=== PATIENT | female | born 1990 | race Caucasian/White ===

== ENCOUNTER 2018-08-07 18:35 | Emergency (ER) | payer OTHER ==
[~2018-08-07] VITALS: Ht 170.2 cm; Wt 81.2 kg
[2018-08-07 18:41] VITALS: Ht 170.2 cm; Wt 81.2 kg
[2018-08-07 19:46] LABS: BASOPHIL % 1.7 % (0-2); PLATELET COUNT 388 x10^3mcL (130-400); RED CELL DISTRIBUTION WIDTH 13.6 % (11.5-14.5)
[2018-08-07 21:47] VITALS: BP 122/69
== END 2018-08-07 21:47 | disposition home or self-care (01) ==
LOC: ED 18:35
DX: O20.8 Other hemorrhage in early pregnancy (principal); Z3A.00 Weeks of gestation of pregnancy not specified
CPT/HCPCS: 36415

== ENCOUNTER 2020-04-19 20:02 | Emergency (ER) | payer OTHER ==
[~2020-04-19] VITALS: Ht 170.2 cm; Wt 74.4 kg
[2020-04-19 20:09] VITALS: Ht 170.2 cm; Wt 74.4 kg
[2020-04-19 21:04] LABS: PLATELET COUNT 505 x10^3mcL (179-408)
[2020-04-19 21:21] LABS: ALBUMIN 3.4 g/dL (3.4-5.0); ALKALINE PHOSPHATASE 126 U/L (46-116); ALT/SGPT 36 U/L (14-59); AST/SGOT 32 U/L (15-37); BILIRUBIN TOTAL 0.8 mg/dL (0.20-1.00); CALCIUM 9.1 mg/dL (8.5-10.1); CARBON DIOXIDE 27.2 mmol/L (21-32); CHLORIDE SERUM 100 mmol/L (98-107); GFR1 > 60 mL/min; GLUCOSE SERUM 115 mg/dL (74-106); SODIUM SERUM 137 mmol/L (136-145); T4(THYROXINE) 5.4 ug/dL (4.7-13.3); TOTAL PROTEIN, SERUM 7.9 g/dL (6.4-8.2)
[2020-04-19 21:47] LABS: AMPHETAMINE QUAL UR POSITIVE (See below)
[2020-04-19] MEDS ORDERED: AMBIEN5 MG PO (22:15)
[2020-04-19 23:29] VITALS: BP 129/84
[2020-04-21 07:07] LABS: RAPID PLASMA REAGIN Non Reactive (Non Reactive)
== END 2020-04-19 23:29 | disposition home or self-care (01) ==
LOC: ED 20:02
PROVIDERS: Emergency Medicine
DX: R53.83 Other fatigue (principal); G47.00 Insomnia, unspecified; N93.9 Abnormal uterine and vaginal bleeding, unspecified; F19.10 Other psychoactive substance abuse, uncomplicated; F17.200 Nicotine dependence, unspecified, uncomplicated; R51.9 Headache, unspecified; R06.02 Shortness of breath
CPT/HCPCS: 87491; 87591; 99406